=== PATIENT | male | born 1980 | race Caucasian/White ===

== ENCOUNTER 2016-08-31 13:50 | Emergency (ER) | payer SELFPAY ==
[2016-08-31 14:27] VITALS: RESP 20; O2SAT 98
[2016-08-31] MEDS ORDERED: DIAZEPAM 5MG/ML SOL IM ONE (14:56)
[2016-08-31] MEDS ORDERED: DIAZEPAM 5MG/ML SOL ONE (15:11)
[2016-08-31 15:44] VITALS: BP 116/75; PULSE 78; TEMP 97.9
== END 2016-08-31 15:35 | disposition home or self-care (01) | DRG 563 ==
LOC: ED 13:50
DX: S39.012A Strain of muscle, fascia and tendon of lower back, initial encounter (principal); X50.0XXA Overexertion from strenuous movement or load, initial encounter
CPT/HCPCS: 96372; 99282; J3360